=== PATIENT | female | born 1945 | race Two or more races ===

== ENCOUNTER 2021-07-30 20:12 | Emergency (ER) | payer OTHER ==
[~2021-07-30] VITALS: Ht 162.6 cm; Wt 77.1 kg
[2021-07-30 21:15] VITALS: BP 146/65
--- NOTE | 2021-07-30 21:15 | NUR ---
PT PAGE FROM [facility] C/O ZHENG, LEFT EAR ACHE, FOR A FEW DAYS, FELT WORSE TODAY. PT A/OX3. TOLERATING R/A WELL WITH NO SOB. CONNECTED PT TO POX AND MONITOR.
[2021-07-30] MEDS ORDERED: diphenhydrAMINE HCL 50 MG/ML VIAL IV ONE (22:30)
[2021-07-30] MEDS ORDERED: KETOROLAC TROMETHAMINE INJ 30 MG/ML VIAL IV ONE (22:30)
[2021-07-30 22:43] LABS: BASOPHILS % (AUTO) 0.9 % (0.0-2.0); EOSINOPHILS % (AUTO) 1.6 % (0.0-6.0); HEMATOCRIT 26 % (33-45); HEMOGLOBIN 8.6 g/dL (11.5-14.8); LYMPHOCYTES # (AUTO) 1.7 K/uL (0.8-4.8); LYMPHOCYTES % (AUTO) 37.7 % (20.0-44.0); MEAN CORPUSCULAR HGB CONC 33 g/dl (31.0-36.0); MEAN CORPUSCULAR VOLUME 102 fL (82-100); MONOCYTES # (AUTO) 0.3 K/uL (0.1-1.30); MONOCYTES % (AUTO) 6.9 % (2.0-12.0); NEUTROPHILS # (AUTO) 2.4 K/uL (1.8-8.9); NEUTROPHILS % (AUTO) 52.9 % (43.0-81.0); PLATELET COUNT (AUTO) 179 K/uL (150-450); RED BLOOD CELL COUNT(AUTO) 2.53 MIL/uL (4.0-5.2); WHITE BLOOD COUNT (AUTO) 4.6 K/uL (4.3-11.0)
--- NOTE | 2021-07-30 22:43 | NUR ---
[facility] #20G S/L; PATENT AND INTACT
[2021-07-30] MEDS ORDERED: KETOROLAC TROMETHAMINE 15 MG/ML VIAL ONE (22:44)
[2021-07-30] MEDS ORDERED: diphenhydrAMINE HCL 50 MG/ML VIAL ONE (22:44)
[2021-07-30 23:02] LABS: CALCIUM, SERUM 7.7 mg/dL (8.5-10.1); CARBON DIOXIDE 23 mmol/L (21-32); CHLORIDE 109 mmol/L (98-107); CREATININE 1.8 mg/dL (0.6-1.3); GLUCOSE 321 mg/dL (74-106); POTASSIUM 3.7 mmol/L (3.5-5.1); SODIUM SERUM 139 mmol/L (136-145); UREA NITROGEN, BLOOD 34 mg/dL (7-18)
--- NOTE | 2021-07-30 23:02 | NUR ---
PT RETURNED TO ER BED [address]
--- NOTE | 2021-07-30 23:35 | NUR ---
[facility] CALLED FOR BLS TRANSPORT. ETA 1-1.5 HRS.
--- NOTE | 2021-07-30 23:58 | NUR ---
REPORT GIVEN TO RAFIA SAM [facility] FOR DC FRANC
--- NOTE | 2021-07-31 01:00 | NUR ---
REPORT GIVEN TO JUDITH ACUÑA. PT DC TO SUB ACUTE SPARROWS POINT FACILTY VIA AMBULANCE IV removed. Catheter intact and site benign. Pressure and 4x4 applied to site. No bleeding noted.
== END 2021-07-31 01:07 ==
LOC: ER 20:14
DX: R51.9 Headache, unspecified (principal); H92.02 Otalgia, left ear; I10 Essential (primary) hypertension; E78.5 Hyperlipidemia, unspecified; E11.40 Type 2 diabetes mellitus with diabetic neuropathy, unspecified
CPT/HCPCS: 36415; 70450; 80048; 85025; 96374; 96375; 99284; J1200; J1885